=== PATIENT | female | born 1965 | race Caucasian/White ===

== ENCOUNTER 2022-01-05 08:52 | Emergency (ER) | payer OTHER ==
[~2022-01-05] VITALS: Ht 162.6 cm; Wt 82.6 kg
[~2022-01-05 08:52] MED LIST: LEVO0.1T19 PO
[2022-01-05 08:58] VITALS: BP 127/91
--- NOTE | 2022-01-05 09:04 | NUR ---
56 Y/O FEMALE BIB C/O L SIDED CHEST PAIN RADIATING TO SHOULDER/BACK X6 DAYS. PT REPORTS PAIN PRESSURE. +SOB D/T PAIN. PT WENT TO PCP YESTERDAY, STATED SIZE OF BREAST IS CAUSING THE PAIN AND GAVE HER MOTRIN. PT A/O X4 WITH EVEN AND UNLABORED RESPIRATIONS. PMH:HYPOTHYROID ALLERGIES:PCN
[2022-01-05 12:04] LABS: BASOPHILS % (AUTO) 0.2 % (0.0-2.0); EOSINOPHILS % (AUTO) 0.2 % (0.0-4.0); HEMATOCRIT 42.4 % (36-48); HEMOGLOBIN 14.4 g/dL (12.0-16.0); LYMPHOCYTES # (AUTO) 1.7 K/uL (2.5-16.5); LYMPHOCYTES % (AUTO) 29.4 % (20.5-51.1); MEAN CORPUSCULAR HEMOGLOBIN 29 pg (27-31); MEAN CORPUSCULAR HGB CONC 34 g/dL (33-37); MEAN CORPUSCULAR VOLUME 85.8 fL (80-94); MONOCYTES # (AUTO) 0.3 K/uL (0.8-1.0); MONOCYTES % (AUTO) 4.5 % (1.7-9.3); NEUTROPHILS # (AUTO) 3.7 K/uL (1.8-7.7); NEUTROPHILS % (AUTO) 65.7 % (42.2-75.2); PLATELET COUNT (AUTO) 276 K/uL (140-450); RED BLOOD CELL COUNT(AUTO) 4.94 MIL/uL (4.20-5.40); RED CELL DISTRIBUTION WIDTH 13.7 % (11.6-13.7); WHITE BLOOD COUNT (AUTO) 5.7 K/uL (4.8-10.8)
[2022-01-05 12:28] LABS: ALBUMIN 4.3 g/dL (3.4-5.0); ANION GAP 11.2 (8-16); ASPARTATE AMINOTRANSFERASE 26 U/L (15-37); CHLORIDE 105 mmol/L (98-107); CREATININE 0.7 mg/dL (0.6-1.3); FREE T4 (FREE THYROXINE) 1.04 ng/dL (0.76-1.46); GFR ARICAN-AMERICAN 111 mL/min (>90); GLUCOSE 103 mg/dL (74-106); POTASSIUM 4.2 mmol/L (3.5-5.1); SODIUM SERUM 140 mmol/L (136-145); THYROID STIMULATING HORMONE 10.09 uIU/mL (0.34-3.74); TOTAL BILIRUBIN 0.4 mg/dL (0.0-1.0); UREA NITROGEN, BLOOD 17 mg/dL (7-18)
[2022-01-05] MEDS ORDERED: DOPPLER MC ONE (12:43)
[2022-01-05] MEDS ORDERED: PRIMARY CRASH CART TRAY MC ONE (12:45)
[2022-01-05 13:40] VITALS: BP 141/79
--- NOTE | 2022-01-05 13:41 | NUR ---
Patient discharged with v/s stable. Written and verbal after care instructions given and explained. Patient verbalized understanding. Ambulatory with steady gait. All questions addressed prior to discharge. Advised to follow up with PMD.
== END 2022-01-05 13:41 | disposition home or self-care (01) ==
LOC: MED 08:52
DX: R07.9 Chest pain, unspecified (principal); M54.2 Cervicalgia; R51.9 Headache, unspecified; E03.9 Hypothyroidism, unspecified
CPT/HCPCS: 36415; 71045; 80053; 84439; 84443; 84484; 85025; 93005; 99285

== ENCOUNTER 2023-01-24 06:40 | Emergency (ER) | payer OTHER ==
[~2023-01-24] VITALS: Ht 162.6 cm; Wt 87.5 kg
[2023-01-24 06:53] VITALS: BP 167/82; PULSE 85; RESP 18; TEMP 97; O2SAT 98
[2023-01-24 07:49] VITALS: BP 137/74; PULSE 82; RESP 17; O2SAT 97
[2023-01-24 08:40] LABS: BASOPHILS % (AUTO) 0.1 % (0.0-2.0); EOSINOPHILS % (AUTO) 0.1 % (0.0-4.0); HEMATOCRIT 38.2 % (36-48); HEMOGLOBIN 13.1 g/dL (12.0-16.0); LYMPHOCYTES # (AUTO) 1.5 K/uL (2.5-16.5); LYMPHOCYTES % (AUTO) 29.9 % (20.5-51.1); MEAN CORPUSCULAR HEMOGLOBIN 29 pg (27-31); MEAN CORPUSCULAR HGB CONC 34 g/dL (33-37); MEAN CORPUSCULAR VOLUME 84.8 fL (80-94); MONOCYTES # (AUTO) 0.3 K/uL (0.8-1.0); MONOCYTES % (AUTO) 5.5 % (1.7-9.3); NEUTROPHILS # (AUTO) 3.3 K/uL (1.8-7.7); NEUTROPHILS % (AUTO) 64.4 % (42.2-75.2); PLATELET COUNT (AUTO) 250 K/uL (140-450); RED BLOOD CELL COUNT(AUTO) 4.51 MIL/uL (4.20-5.40); WHITE BLOOD COUNT (AUTO) 5.1 K/uL (4.8-10.8)
[2023-01-24 08:42] LABS: ALBUMIN 4.1 g/dL (3.4-5.0); ANION GAP 11.8 (8-16); ASPARTATE AMINOTRANSFERASE 24 U/L (15-37); CARBON DIOXIDE 27.2 mmol/L (21-32); CHLORIDE 106 mmol/L (98-107); GFR ARICAN-AMERICAN 73 mL/min (>90); GLUCOSE 100 mg/dL (74-106); LIPASE 85 U/L (73-393); SODIUM SERUM 141 mmol/L (136-145); TOTAL BILIRUBIN 0.4 mg/dL (0.0-1.0); UREA NITROGEN, BLOOD 25 mg/dL (7-18)
[2023-01-24] MEDS ORDERED: ACETAMINOPHEN EXTRA STRENGTH 500 MG TAB PO ONE (09:10)
[2023-01-24] MEDS ORDERED: CYCL-711 PO (10:48)
--- NOTE | 2023-01-24 10:55 | NUR ---
Patient discharged with v/s stable. Written and verbal after care instructions given and explained. Patient alert, oriented and verbalized understanding of instructions. Ambulatory with steady gait. All questions addressed prior to discharge. ID band removed. Patient advised to follow up with PMD. Rx of flexeril given. Patient educated on indication of medication including possible reaction and side effects. Opportunity to ask questions provided and answered.
== END 2023-01-24 10:55 | disposition home or self-care (01) ==
LOC: MED 06:40
DX: R07.9 Chest pain, unspecified (principal); I10 Essential (primary) hypertension; M62.838 Other muscle spasm; E03.9 Hypothyroidism, unspecified; Z79.899 Other long term (current) drug therapy; Z88.0 Allergy status to penicillin
CPT/HCPCS: 36415; 71045; 80053; 83690; 84484; 85025; 93005; 99285

== ENCOUNTER 2023-03-02 01:25 | Emergency (ER) | payer OTHER ==
[~2023-03-02 01:25] MED LIST changes: +CYCL-711 PO
== END 2023-03-02 02:50 | disposition left against medical advice (07) ==
LOC: MED 01:25
DX: I10 Essential (primary) hypertension (principal); Z53.21 Procedure and treatment not carried out due to patient leaving prior to being seen by health care provider